=== PATIENT | male | born 1960 | race Caucasian/White ===

== ENCOUNTER 2023-01-30 21:41 | Emergency (ER) | payer SELFPAY ==
[2023-01-30 21:42] VITALS: BP 177/118; PULSE 77; RESP 18; TEMP 36.8; O2SAT 97; BMI 23.1
--- NOTE | 2023-01-30 23:34 | HMH.EDSKAF ---
Discharge Plan Disposition Patient Disposition: Home, Self-Care Prescriptions Prescriptions: New sulfamethoxazole-trimethoprim [Bactrim DS] 800-160 mg Tablet 1 tab PO Q12H Qty: 20 0RF cephalexin [cephalexin] 500 mg capsule 500 mg PO TID Qty: 30 0RF Referrals Follow up/Referrals: Provider,Referral, [Primary Care Provider] - See instructions Clinical Impressions Clinical Impression: Abscess Instructions Patient Instructions: DI for Skin Abscess Discharge ED Provider: Julio Cesar (ED)Daniel Skin/Abscess/FB HPI General Chief complaint: Skin/Abscess/Foreign Body Stated complaint: poss spider bite LT arm Time Seen by Provider: 01/30/23 23:34 Mode of Arrival: Ambulatory Source of Information: Patient and Medical Record Limitations: No Limitations Description of Symptoms (Recalled from ER Triage Doc. by RN): Pt presents with left AC absess that he believes to be a spider bite he got on Sunday. Denies any N/V/D, fever or drainage from wound. States it is not painful. History of Present Illness HPI narrative: infection lt antecubital area over the last few days no other c/o - no ivdu complaint: abscess/boil Onset (ago): day(s) Location: LUE Severity: moderate Associated symptoms: denies other symptoms Related Data Previous Rx's Medication Instructions Recorded cephalexin 500 mg capsule 500 mg PO TID #30 caps 01/31/23 sulfamethoxazole 800 1 tab PO Q12H #20 tabs 01/31/23 mg-trimethoprim 160 mg tablet (Bactrim DS) Allergies Allergy/AdvReac Type Severity Reaction Status Date / Time No Known Allergies Allergy Verified 01/30/23 23:30 [facility] Disclaimer: The information contained in this section may have been updated after the patient was seen, as this information can be updated by other users. Social History Smoking Status: Never smoker alcohol intake: never current occupational status: employed Travel in the last 8 weeks: None ROS Obtained: Yes All systems reviewed & no additional complaints except as documented Physical Exam General General appearance: alert Head Head exam: normocephalic Eye Eye exam: Present PERRL and EOMI ENT ENT exam: Present mucous membranes moist Neck Neck exam: Present trachea midline Respiratory Respiratory exam: Present normal lung sounds bilaterally; Absent respiratory distress Cardiovascular Cardiovascular exam: Present regular rate Abdominal Exam Abdominal exam: Present soft Extremities Exam Extremities exam: Present full ROM Neurological Exam Neurological exam: Present alert, oriented X3 and CN II-XII intact; Absent motor sensory deficit Psychiatric Psychiatric exam: Present normal affect Skin Skin exam: Present other (2x2 cm red and infected abscess lt antecubital fossa ) Lymphatic Lymphatic Findings: no adenopathy Medical Decision Making Medical Records Medical records reviewed: Yes I reviewed the patient's medical records. Vishal Inquiry Pt receiving controlled substance: No Vital Signs: 01/30/23 21:42 01/30/23 23:54 Temperature 98.3 F 98.3 F Temperature Source Oral Oral Pulse Rate 71 Pulse Rate [Right] 77 Respiratory Rate 18 18 Blood Pressure 147/87 H Blood Pressure [Right Arm] 177/118 H Blood Pressure Mean [Right Arm] 137 Blood Pressure Source [Right Arm] Automatic Cuff Blood Pressure Position [Right Arm] Sitting 02 Sat by Pulse Oximetry 97 Oxygen Delivery Method Room Air Orders (Tests/Meds): ED MEDICATIONS Generic Name Dose Route Start Last Admin Trade Name Freq PRN Reason Stop Dose Admin Mupirocin 1 gm 01/30/23 23:30 01/30/23 23:35 Mupirocin 2% Ointment 22gm Tube TP 03/01/23 23:29 1 gm BID MIRYAM Administration Discontinued Medications Generic Name Dose Route Start Last Admin Trade Name Freq PRN Reason Stop Dose Admin Cephalexin HCl 500 mg 01/30/23 23:31 01/30/23 23:35 Cephalexin 500mg Capsule PO 01/30/23 23:32 500 mg ONCE ONE Administration Tramadol
[2023-01-30 23:54] VITALS: BP 147/87; PULSE 71; RESP 18; TEMP 36.8; O2SAT 98
--- NOTE | 2023-02-02 16:21 | PC.NURSE ---
called pt to report culture result. pt reports wound is improving.
== END 2023-01-30 23:54 | disposition home or self-care (01) ==
PROVIDERS: Emergency Provider Emergency Medicine
DX: L02.414 Cutaneous abscess of left upper limb (principal)
CPT/HCPCS: 10060; 87070; 87077; 87186; 87205; 99283; 99284